=== PATIENT | male | born 1940 | race Caucasian/White ===

== ENCOUNTER 2016-11-23 01:38 | Emergency (ER) | payer OTHER, MEDICARE ==
--- OUTSIDE RECORDS SUMMARY | 2016-11-23 02:55 | XMS REPORT | Continuity of Care Document ---
:1940 Author Organization [email or web address] Address Unavailable [place] [id number] Care Team Providers Name Role Phone Richie Lopez Primary Care Provider [phone] Source Comments This disclosure is being made pursuant to the [employer] program and maynot contain all information available regarding this patient.[email or web address] Active Allergies and Adverse Reactions No Known Allergies Current Medications Be aware that medications may not be up to date as of this document. Alwaysverify current medications with the patient. Prescription Sig. Disp. Refills Start Date End Date Status Multiple Take 1 tablet Active Vitamins-Minerals by mouth 2 (MULTIVITAMIN ADULT (two) times PO) daily. omeprazole Take 20 mg by Active (PRILOSEC) 20 MG mouth every capsule morning before breakfast. vitamin D Take 1,000 Active (CHOLECALCIFEROL) Units by 1000 units tablet mouth daily. simvastatin (ZOCOR) Take 20 mg by Active 20 MG tablet mouth nightly. On hold for now, not to be taking right now * Leuprolide Acetate Inject as Active (LUPRON IJ) directed. lupron injections:la st taken 08/06 aspirin (ASPIRIN) Take 1 tablet 0 11/22/2016 Active 325 MG EC tablet by mouth nightly. tapentadol HCl Take 1 tablet 15 tablet 0 11/19/2016 Active (NUCYNTA) 50 MG (50 mg total) tablet by mouth every 6 (six) hours as needed for Pain. levofloxacin Take 1 tablet 3 tablet 0 11/19/2016 Active (LEVAQUIN) 500 MG by mouth tablet daily. Until gone cephALEXin (KEFLEX) Take 1 40 capsule 0 11/19/2016 11/29/2016 Active 500 MG capsule capsule by mouth 4 (four) times daily. tamsulosin HCl Take 0.4 mg 11/19/2016 Discontinued (FLOMAX) 0.4 MG by mouth as capsule directed. Three times a week: Tuesday, Tue, and Fridays aspirin (ASPIRIN) Take 325 mg 11/19/2016 Discontinued 325 MG EC tablet by mouth nightly. Active Problems Problem Noted Date Malignant neoplasm of prostate (HCC) 11/18/2016 Most Recent Encounters Date Type Specialty Providers Description 11/18/2016 - Hospital Encounter Med/Surg [facility], 11/19/2016 Kyaw Bahena MD 11/18/2016 Surgery Rippentredouard, ROBOTIC ASSISTED Kyaw Bahena MD LAPAROSCOPIC PROSTATECTOMY 11/17/2016 Anesthesia Event Addis Crews Social History Tobacco Use Types Packs/Day Years Used Date Never Smoker Alcohol Use Drinks/Week oz/Week Comments Yes 7 Glasses of wine 4.2 Last Filed Vital Signs Vital Sign Reading Time Taken Blood Pressure 104/64 11/19/2016 7:50 AM CDT Pulse 85 11/19/2016 7:50 AM CDT Temperature 36.2 C (97.2 F) 11/19/2016 7:50 AM CDT Respiratory Rate 16 11/19/2016 7:50 AM CDT Height 1.727 m (5' 7.99") 11/18/2016 10:45 AM CDT Weight 80.2 kg (176 lb 12.9 oz) 11/18/2016 10:45 AM CDT Body Mass Index 26.89 11/18/2016 10:45 AM CDT Oxygen Saturation 95% 11/19/2016 7:50 AM CDT Plan of Care Health Maintenance Due Date Last Done Comments Tetanus/Pertussis (1 - Tdap) 11/30/1958 Well Adult Visit 11/30/1989 Zoster Vaccine 60+ 1999 Pneumococcal Low/Medium Risk 65+ (1 of 2 - PCV13) 11/30/2004 Influenza Immunization (#1) 2017 Procedures from Last 3 Months Procedure Name Priority Date/Time Associated Diagnosis Comments ROBOTIC ASSISTED 11/18/2016 7:30 AM Malignant neoplasm of LAPAROSCOPIC DISSECT CDT prostate (HCC) NODE LYMPH Case Notes H&P Richie Wood [id number] Special Needs Resident to assist ROBOTIC ASSISTED LAPAROSCOPIC 11/18/2016 7:30 AM CDT Malignant neoplasm of PROSTATECTOMY prostate (HCC) Case Notes H&P Richie Wood [id number] Special Needs Resident to assist Results from Last 3 Months Type and screen (11/18/2016 6:26 AM) Component Value Range ABO/Rh O POSITIVE Antibody Screen NEGATIVEComment:Test Performed at [facility], [address] [place], [place]. Surgical pathology exam (11/18/2016) Narrative CASE: [id number] PATIENT: HEATHER GARCIA CLINICAL HISTORY/DIAGNOSIS: Malignant neoplasm of prostate. SPECIMEN SUBMITTED: A. Prostate. B. Left obturator lymph node. C. Right obturator lymph node, clip in place. D. Left pelvis sentinel vessel. Performed at [facility], [facility] [place] [address] [facility] SURGICAL PATHOLOGY REPORTSpecimen No.: [id number] DIAGNOSIS: A. Prostate, radical prostatectomy: - prostatic adenocarcinoma. - Renick score 4+5=9. - extraprostatic extension. - surgical margins negative. B. Left obturator lymph node, excision: - four lymph nodes negative for metastatic carcinoma. C. Right obturator lymph node, excision: - four lymph nodes negative for metastatic carcinoma. D. Designated "left pelvis sentinel vessel", biopsy: - seminal vesicleand fibrovascular tissue, negative for prostatic adenocarcinoma. AJCC Staging Information: pT3a, pN0, pMX GROSS DESCRIPTION: A. Received fresh labeled "Heather Garcia" and "prostate" is a 31-gram prostate with attached bilateral seminal vesicles and vas deferens.The prostate is 3.6 cm in length x 4.8x 3.7 cm.The right seminal vesicle and vas deferens are 2.4 cm in length and 2 cm in diameter.The left seminal vesicle and vas deferens are 1 cm in length and 1.4 cm in diameter.The outer surfaces of the prostate are red-porter and smooth to focally shaggy with red-brown probable cautery artifact.The right half of the prostate is inked black.The left half is inked red.Sectioning reveals pink-porter diffusely nodular cut surfaces.No distinct masses or lesions are grossly identified. Resident Care Director sections are submitted as follows: 1 and 2=right apex, entirely submitted; 3-6=territory sales representative sections of right prostate submitted apex to base; 7-9=right base, entirely submitted; 10=territory sales representative section of right seminal vesicle and vas deferens; 11 and 12=left apex entirely submitted; 13-16=territory sales representative sections of left prostate submitted apex to base; 17-19=left base, entirely submitted; 20=territory sales representative sections left seminal vesicle and vas deferens. B. Received fresh labeled "Heather Garcia" and "left obturator lymph node" is a 3.5 x 2.5 x 0.5 cm portion of yellow-porter, lobulated fibrofatty tissue. Within this tissue are four probable lymph nodes ranging from 0.4 to 2.9 cm in greatest dimension. The largest lymph node is serially sectioned to reveal pink-porter, grossly unremarkable cut surfaces. The lymph nodes are entirely submitted as follows: 1 and 2=one lymph node sectioned; 3=three whole probable lymph nodes. C. Received fresh labeled "Heather Garcia" and "right obturator lymph node with clip in place" is a 3.5 x 1.5 x 0.5 cm portion of yellow-porter, lobulated fibrofatty tissue. There is a plastic clip within the center of the specimen. Sectioning reveals four probable lymph nodes ranging from 0.3 to 2.2 cm in greatest dimension. The two largest lymph nodes are serially sectioned to reveal pink-porter, grossly unremarkable cut surfaces. The lymph nodes are entirely submitted as follows: 1 and 2=one lymph node sectioned; 3 and 4=one lymph node sectioned; 5=two whole probable lymph nodes. D. Received fresh labeled "Heather Garcia" and "left pelvis sentinel vessel" is a 4 x 0.5 x 0.2 cm portion of pink-porter tissue. The tissue is serially sectioned to reveal a lumen ranging from pinpoint to 0.3 cm in diameter. The specimen is entirely submitted in two. 11/18/16: NAVEEN/JOSEPH/hueyf MICROSCOPIC DESCRIPTION: A-D. Microscopic examinations performed and support the diagnoses. 11/19/16: KELLE/ravinder [facility] Surgical Pathology Cancer Case Summary (Checklist) PROSTATE GLAND: Radical Prostatectomy Staging information taken from this case Procedure: Radical prostatectomy Prostate Size: Weight: 31 grams. Size: 3.6 x 4.8 x 3.7 cm Lymph Node Sampling: Pelvic lymph node dissection Histologic Type: Adenocarcinoma (acinar, not otherwise specified) Histologic Grade:Renick Pattern Primary Pattern: Grade 4 Secondary Pattern: Grade 5 Tertiary Pattern: Not applicable Total Jessica Score: 9 Tumor Quantitation: Proportion (percentage) of prostate involved by tumor: 10-20% Tumor size (dominant nodule, if present): Greatest dimension: 20 mm Extraprostatic Extension: Present, Nonfocal (established, extensive) Seminal Vesicle Invasion: Not identified Margins: Margins uninvolved by invasive carcinoma Treatment Effect on Carcinoma: Not identified Lymph-Vascular Invasion: Not identified Perineural Invasion: Present Pathologic Staging (pTNM) TNM Descriptors Primary Tumor (pT): pT3a Regional Lymph Nodes (pN): pN0 Number of Lymph Nodes Examined: 8 Number of Lymph Nodes Involved: 0 Distant Metastasis (pM): Not applicable Final Diagnosis performed by Glenda Lauren M.D. Electronically signed 11/19/2016 2:08:57PM Procedure Note [place], Lab In [facility] - TueNov 19, 2016 2:19 PM CDT CASE: [id number] PATIENT: HEATHER GARCIA CLINICAL HISTORY/DIAGNOSIS: Malignant neoplasm of prostate. SPECIMEN SUBMITTED: A. Prostate. B. Left obturator lymph node. C. Right obturator lymph node, clip in place. D. Left pelvis sentinel vessel. Performed at [facility], [facility] [address] SURGICAL PATHOLOGY REPORT Specimen No.: [id number] DIAGNOSIS: A. Prostate, radical prostatectomy: - prostatic adenocarcinoma. - Renick score 4+5=9. - extraprostatic extension. - surgical margins negative. B. Left obturator lymph node, excision: - four lymph nodes negative for metastatic carcinoma. C. Right obturator lymph node, excision: - four lymph nodes negative for metastatic carcinoma. D. Designated "left pelvis sentinel vessel", biopsy: - seminal vesicle and fibrovascular tissue, negative for prostatic adenocarcinoma. AJCC Staging Information: pT3a, pN0, pMX GROSS DESCRIPTION: A. Received fresh labeled "Heather Garcia" and "prostate" is a 31-gram prostate with attached bilateral seminal vesicles and vas deferens. The prostate is 3.6 cm in length x 4.8 x 3.7 cm. The right seminal vesicle and vas deferens are 2.4 cm in length and 2 cm in diameter. The left seminal vesicle and vas deferens are 1 cm in length and 1.4 cm in diameter. The outer surfaces of the prostate are red-porter and smooth to focally shaggy with red-brown probable cautery artifact. The right half of the prostate is inked black. The left half is inked red. Sectioning reveals pink-porter diffusely nodular cut surfaces. No distinct masses or lesions are grossly identified. Resident Care Director sections are submitted as follows: 1 and 2=right apex, entirely submitted; 3-6=territory sales representative sections of right prostate submitted apex to base; 7-9=right base, entirely submitted; 10=territory sales representative section of right seminal vesicle and vas deferens; 11 and 12=left apex entirely submitted; 13-16=territory sales representative sections of left prostate submitted apex to base; 17-19=left base, entirely submitted; 20=territory sales representative sections left seminal vesicle and vas deferens. B. Received fresh labeled "AndrewsHeather" and "left obturator lymph node" is a 3.5 x 2.5 x 0.5 cm portion of yellow-porter, lobulated fibrofatty tissue. Within this tissue are four probable lymph nodes ranging from 0.4 to 2.9 cm in greatest dimension. The largest lymph node is serially sectioned to reveal pink-porter, grossly unremarkable cut surfaces. The lymph nodes are entirely submitted as follows: 1 and 2=one lymph node sectioned; 3=three whole probable lymph nodes. C. Received fresh labeled "Heather Garcia" and "right obturator lymph node with clip in place" is a 3.5 x 1.5 x 0.5 cm portion of yellow-porter, lobulated fibrofatty tissue. There is a plastic clip within the center of the specimen. Sectioning reveals four probable lymph nodes ranging from 0.3 to 2.2 cm in greatest dimension. The two largest lymph nodes are serially sectioned to reveal pink-porter, grossly unremarkable cut surfaces. The lymph nodes are entirely submitted as follows: 1 and 2=one lymph node sectioned; 3 and 4=one lymph node sectioned; 5=two whole probable lymph nodes. D. Received fresh labeled "AndrewsHeather" and "left pelvis sentinel vessel" is a 4 x 0.5 x 0.2 cm portion of pink-porter tissue. The tissue is serially sectioned to reveal a lumen ranging from pinpoint to 0.3 cm in diameter. The specimen is entirely submitted in two. 11/18/16: NAVEEN/JOSEPH/holli MICROSCOPIC DESCRIPTION: A-D. Microscopic examinations performed and support the diagnoses. 11/19/16: KELLE/ravinder [facility] Surgical Pathology Cancer Case Summary (Checklist) PROSTATE GLAND: Radical Prostatectomy Staging information taken from this case Procedure: Radical prostatectomy Prostate Size: Weight: 31 grams. Size: 3.6 x 4.8 x 3.7 cm Lymph Node Sampling: Pelvic lymph node dissection Histologic Type: Adenocarcinoma (acinar, not otherwise specified) Histologic Grade: Renick Pattern Primary Pattern: Grade 4 Secondary Pattern: Grade 5 Tertiary Pattern: Not applicable Total Renick Score: 9 Tumor Quantitation: Proportion (percentage) of prostate involved by tumor: 10-20% Tumor size (dominant nodule, if present): Greatest dimension: 20 mm Extraprostatic Extension: Present, Nonfocal (established, extensive) Seminal Vesicle Invasion: Not identified Margins: Margins uninvolved by invasive carcinoma Treatment Effect on Carcinoma: Not identified Lymph-Vascular Invasion: Not identified Perineural Invasion: Present Pathologic Staging (pTNM) TNM Descriptors Primary Tumor (pT): pT3a Regional Lymph Nodes (pN): pN0 Number of Lymph Nodes Examined: 8 Number of Lymph Nodes Involved: 0 Distant Metastasis (pM): Not applicable Final Diagnosis performed by Glenda Lauren M.D. Electronically signed 11/19/2016 2:08:57PM EKG SCAN (11/16/2016 1:22 AM)Antibody screen (11/10/2016 8:51 AM) Component Value Range Antibody Screen NEGATIVE ABO/Rh O POSITIVEComment:Test performed at [facility], [address] [facility], [place], [place] Insurance Payer Benefit Plan / Subscriber ID Type Phone Address Group [employer] MEDICARE [employer] MEDICARE [id number] [address] [address] [place] [address] MEDICARE MEDICARE A AND B [id number] [phone] [address] [place] [address]
--- NOTE | 2016-11-23 02:58 | ERNOTE ---
Abdominal HPI - General Chief Complaint: Abdominal Pain Time Seen by Provider: 11/23/16 02:37 Source: patient Exam Limitations: no limitations - Immun/Allergies/Home Medications Immunizatons: IMMUNIZATION HX Immunizations Up to Date Yes History of Influenza Vaccine Yes Hx Pneumococcal Vaccination Yes Allergies/Adverse Reactions: Allergies No Known Allergies Allergy (Verified 11/23/16 01:47) Home Medications: HOME MEDICATIONS Aspirin [Aspirin Enteric Coated] 325 mg PO HS 11/23/15 [Last Taken Unknown] Omeprazole [Prilosec] 20 mg PO DAILY 11/23/15 [Last Taken Unknown] - History of Present Illness Narrative: Pt had prostatectomy 4 days ago. Pain was improving but this evening it increased to the point that he couldn't get into his own car and his called EMS for transport here. Timing: getting worse - prior to ED, Quality: moderate Activities at Onset: activity Prior Treatment: Present: recently hospitalized Review of Systems - Review of Systems Constitutional: Absent: fever, chills EYE: Present: no symptoms reported ENT: Present: no symptoms reported Respiratory: Absent: shortness of breath Cardiology: Present: no symptoms reported Gastrointestinal/Abdominal: Present: See HPI, constipation. Absent: nausea, vomiting Genitourinary: Absent: hematuria - urine in bag has been clear/ yellow Musculoskeletal: Present: no symptoms reported Skin: Present: change in color - bruising on abdomen, flanks and pelvis Neurological: Present: no symptoms reported Endocrine: Absent: excessive sweating, flushing Hematologic/Lymphatic: Present: easy bruising Psych: Present: no symptoms reported - Patient's Past Medical History Patient History - Medical: GERD Patient History - Cardiac/Respiratory: Coronary Heart Disease, Hyperlipidemia Patient History - Cancer: Prostate, Skin Patient History - Surgical Procedures: Colonoscopy, Coronary Bypass Surgery Patient History - Other: None - Family History Father Family History - Medical: Family History - Cardiac/Respiratory: Myocardial Infarction Mother Family History - Cardiac/Respiratory: CHF - Social History Living Situations: home Abuse History: No History of abuse Psych History: No pertinent hx Smoking Status: Former smoker Alcohol Use: none Drug Use: none - Immunizations Immunizations Up to Date: Yes Hx Pneumococcal Vaccination: Yes History of Influenza Vaccine: Yes Physical Exam - Physical Exam General Appearance: Present: wd/wn, alert, mild distress Eye Exam: Normal inspection: bilateral, PERRL: bilateral Ears, Nose, Throat: Present: normal ENT inspection Neck: Present: normal inspection, nontender Respiratory: Present: no respiratory distress, normal breath sounds, lungs clear Cardiovascular/Chest: Present: regular rate, rhythm, no murmur Gastrointestinal/Abdominal: Present: normal bowel sounds, tenderness - diffuse, mild. Suprapubic mild-mod, distended - mildly. Absent: guarding, rebound Male Genitals Exam: Present: other - Penis and scrotum anatomically normal, irwin catheter in place and in good condition. Bruising on pelvis, penis, and scrotum Extremity Exam: Present: normal inspection, normal range of motion, no edema Neurological Exam: Present: alert, oriented, normal mood/affect, no motor/ sensory deficits Skin Exam: Present: other - Bruising around each of six port sites on abdomen, all well approximated without erythema or drainage. Bruising along bilateral flanks and into the pelvis, appropriate for his post surgical condition ED Progress - Results and Orders Patient's Lab Results:: I have reviewed the patient's lab results. Results and Orders: Laboratory Tests 11/23/16 11/23/16 11/23/16 02:50 02:55 02:55 WBC 11.8 H Hgb 9.4 L Hct 26.9 L Plt Count 222 Neutrophils % 78.1 H Sodium 133 Potassium 3.8 Chloride 97 Carbon Dioxide 27.9 Anion Gap 11.9 BUN 15 Creatinine 0.91 Est GFR (Non-Af Amer) 86 BUN/Creatinine Ratio 16.5 Random Glucose 122 H Calcium 8.7 Calcium Adj for Albumin 9.0 Total Bilirubin 1.3 H AST 23 ALT 23 Alkaline Phosphatase 72 Total Protein 6.8 Albumin 3.2 L Urine Color Yellow Urine Appearance Clear Urine pH 6.5 Ur Specific [place] 1.015 Urine Protein 15 H Urine Glucose (UA) Negative Urine Ketones Negative Urine Blood 250 H Urine Nitrate Negative Urine Bilirubin Negative Prot Sulfosalicylic Acd 1+ Urine Urobilinogen Normal Ur Leukocyte Esterase 25 H Urine RBC 10-25 H Urine WBC 0-5 Ur Epithelial Cells None seen Urine Bacteria Trace Hyaline Casts 0-5 H Urine Culture Comments Culture to follow - Vital Signs Patient's Vital Signs:: I have reviewed the patient's vital signs. Vital Signs: Vital Signs 11/23/16 11/23/16 11/23/16 01:39 02:17 02:45 Temperature 36.9 C Pulse Rate 87 83 87 Respiratory 18 18 18 Rate Blood Pressure 122/50 140/57 156/64 O2 Sat by Pulse 95 96 95 Oximetry - CT/Ultrasound CT/Ultrasound Narrative: Atelactasis in the lung bases Calcified pleural plaque along the right hemidiaphragm 1.4 cm cyst in the right kidney lower pole. No evidence for SBO Significant stool burden in the large bowel Post surgical changes: trace pneumoperitoneum, subcutaneous emphysema, and hematoma in the anterior wall. Possible small urinary leak posterior bladder. Abnormal fluid in the dependent pelvis and abdomen. May represent postsurgical change - Progress/Reassessment Chief Complaint: Abdominal Pain Progress Note-Subjective: 11/23/16 06:[address] results with the patient and the non-specific abnormal findings. I called the answering service for the Surgeon (Dr. Kyaw Prado [place], [place]) who performed his prostatectomy. I spoke with Dr. El from that group. He felt that the CT findings were all normal for his surgery, and he just had a post-op illeus. He further stated that as long as the patient was able to take PO intake that he would recommend clear liquids until feeling better. I discussed the recommendations with the patient and he and his expressed understanding. Pt admits to passing gas while in the ED. Departure - Departure Clinical Impression: Ileus, postoperative Disposition: Home Follow Up Needed Condition: Good Instructions: Ileus Additional Instructions: Clear liquids until your bowel begin to move. You may take a stool softener but no stimulant laxatives. See your urologist as scheduled this week. Return to ER as needed Referrals: Richie Lopez MD [Primary Care Provider] -
[2016-11-23 03:00] LABS: Hematocrit 26.9 % (42.0-52.0); Hemoglobin 9.4 gm/dL (13.5-18.0); Mean Cell Volume 87.1 fl (78-100); Mean Corpuscular Hemoglobin 30.4 pg (27-31); Mean Corpuscular Hgb Conc 34.9 g/dl (32-36); Mean Platelet Volume 8.7 fl (6.0-9.5); Neutrophil # 9.2 K/mm3 (1.3-6.0); Neutrophil % 78.1 % (42-75.0); Platelet Count 222 K/mm3 (150-450); Red Blood Count 3.09 M/mm3 (4.7-6.0); White Blood Count 11.8 K/mm3 (4.0-10.5)
[2016-11-23 03:07] LABS: Urine Bilirubin Negative (NEGATIVE); Urine Blood 250 /ul (NEGATIVE); Urine Ketone Negative (NEGATIVE); Urine Nitrite Negative (NEGATIVE); Urine Protein 15 mg/dL (NEGATIVE); Urine Specific Gravity 1.015 SP.GR. (1.005-1.030); Urine Urobilinogen Normal (NORMAL); Urine pH 6.5 pH (5.0-7.0)
[2016-11-23 03:14] LABS: Albumin * 3.2 gm/dl (3.4-5.0); Anion Gap 11.9 mmol/L (6.8-13.8); BUN/Creatinine Ratio 16.5 (9.0-21.6); Bilirubin, Total 1.3 mg/dL (0.0-1.1); Calcium * 8.7 mg/dL (7.9-10.9); Carbon Dioxide 27.9 mmol/L (24-32.6); Potassium 3.8 mmol/L (3.4-4.6); Total Protein 6.8 gm/dL (6.2-8.2)
[2016-11-23 03:19] LABS: Urine Appearance Clear; Urine Bacteria TRACE; Urine Color Yellow; Urine Hyaline Cast 0-5 /LPF; Urine WBC 0-5 /hpf (0-5)
[2016-11-23] MEDS ORDERED: DIATRIZOATE MEGLU/DIATRIZO SOD 30 ML BTL PO ONE (03:36)
[2016-11-23] MEDS ORDERED: DIATRIZOATE MEGLU/DIATRIZO SOD 30 ML BTL ONE (03:38)
[2016-11-23 06:51] VITALS: BP 161/65
== END 2016-11-23 07:05 | disposition home or self-care (01) ==
LOC: ER 01:38
DX: K91.3 Postprocedural intestinal obstruction (principal); N28.1 Cyst of kidney, acquired

== ENCOUNTER 2020-02-04 06:27 | Observation (INO) ==
[2020-02-04] MEDS ORDERED: NORMAL SALINE 1,000 ML IV ONE (06:37)
[2020-02-04 06:46] LABS: Hematocrit 40.7 % (42.0-52.0); Hemoglobin 12.7 gm/dL (13.5-18.0); Mean Cell Volume 87.3 fl (78-100); Mean Corpuscular Hemoglobin 27.3 pg (27-31); Mean Corpuscular Hgb Conc 31.2 g/dl (32-36); Mean Platelet Volume 8.9 fl (8-11.3); Neutrophil # 12.9 K/mm3 (1.3-6.0); Neutrophil % 85.8 % (42-75.0); Platelet Count 235 K/mm3 (150-450); Red Blood Count 4.66 M/mm3 (4.7-6.0); Red Cell Distribution Width 15.4 % (11.5-14.0)
--- NOTE | 2020-02-04 06:49 | ERNOTE ---
Medical Problem HPI - Narrative Date of Service: 02/04/20 - General Chief Complaint: General Assessment Time Seen by Provider: 02/04/20 06:33 Source: patient, EMS Exam Limitations: no limitations, clinical condition - Immun/Allergies/Home Medications Immunizations: IMMUNIZATION HX Immunizations Up to Date Yes History of Influenza Vaccine No Hx Pneumococcal Vaccination Yes Allergies/Adverse Reactions: Allergies Sulfa (Sulfonamide Antibiotics) Adverse Reaction (Mild, Verified 01/07/20 13:06) Nausea Home Medications: HOME MEDICATIONS Omeprazole [Prilosec] 20 mg PO DAILY 11/23/15 [Last Taken Unknown] aspirin 81 mg tablet,delayed release 81 mg PO DAILY 12/01/17 [Last Taken Unknown] cholecalciferol (vitamin D3) 25 mcg (1,000 unit) capsule 1,000 unit PO DAILY 12/01/17 [Last Taken Unknown] multivitamin 1 tab PO DAILY 12/01/17 [Last Taken Unknown] omega-3 fatty acids 1,000 mg capsule 1,000 mg PO DAILY 10/18/18 [Last Taken Unknown] metoclopramide HCl 10 mg tablet 10 mg PO QID #360 tab 12/07/19 [Last Taken Unknown] metoprolol tartrate 75 mg tablet 112.5 mg PO BID #270 tab 12/07/19 [Last Taken Unknown] oxybutynin chloride 5 mg tablet,extended release 24 hr 5 mg PO HS #90 tab 12/07/19 [Last Taken Unknown] Levothyroxine Sodium [Synthroid] 88 mcg PO DAILY 02/04/20 [Last Taken Unknown] Meloxicam [Mobic] 15 mg PO 02/04/20 [Last Taken Unknown] Rosuvastatin Calcium 10 mg PO DAILY 02/04/20 [Last Taken Unknown] - History of Present History Narrative: 79-year-old male got up from bed try to go to the bathroom assisted had some difficulty getting there and said he collapsed but did not lose consciousness completely while he was on the floor he had some coughing choking. 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 was done back in August and a stent upon arrival to the ED placed in the room patient's vital signs were taken patient was alert awake oriented speech was clearing up quite rapidly exam showed movement in all extremities good strength and strength patient wears a gait belt according to the the patient is DNR Date (Duration): 02/04/20 Time (Timing): 06:45 Timing: intermittent Severity: moderate Modifying Factors - (Improves): Present: other - Heat Modifying Factors - (Worsens): Present: other - Heat Review of Systems - Review of Systems Constitutional: Present: no symptoms reported EYE: Present: no symptoms reported ENT: Present: no symptoms reported Respiratory: Present: cough Cardiology: Present: no symptoms reported, palpitations Gastrointestinal/Abdominal: Present: no symptoms reported Genitourinary: Present: no symptoms reported Musculoskeletal: Present: muscle stiffness Skin: Present: no symptoms reported Neurological: Present: weakness, pre-existing deficit Endocrine: Present: no symptoms reported Hematologic/Lymphatic: Present: no symptoms reported Psych: Present: no symptoms reported All Other Systems: All systems neg except as marked Medical History (Last Reviewed 02/04/20 @ 06:46 by Richie Renee MD) 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 Multiple system atrophy Plantar fasciitis Onset Date: ~08/2011 Right. Thrombus of aorta Bradycardia Elevated troponin Onset Date: 11/23/15 Hypotension Ileus, postoperative Onset Date: 11/23/16 Lumbar compression fracture Onset Date: 09/06/18 Preop cardiovascular exam Prostate cancer Onset Date: Unknown Syncope and collapse CVA (cerebral vascular accident) Onset Date: ~2010 Surgical History: Surgical History (Last Reviewed 02/04/20 @ 06:46 by Richie Renee MD) History of biliary stent insertion (Resolved) Onset Date: 09/03/19 History of pancreatic surgery Onset Date: 10/05/19 Dr. Ryan Jones, [facility]. Pancreaticoduodenectomy with diagnostic laparoscopy. *Medical complication: post-operative arrhythmia (atrial fibrillation with RVR). Status post debridement of bone spur History of bilateral cataract extraction Onset Date: Unknown History of colonoscopy Onset Date: Unknown History of coronary artery bypass graft Onset Date: ~2001 History of prostatectomy Onset Date: 11/18/16 Family History: Family History (Last Reviewed 02/04/20 @ 06:35 by Sheba Tim RN) Brother Heart disease COPD (chronic obstructive pulmonary disease) Father Heart disease CVA (cerebral vascular accident) Myocardial infarction Mother CHF (congestive heart failure) Parkinson disease TIA (transient ischemic attack) Social History: (Last Reviewed 02/04/20 @ 06:35 by Sheba Tim RN) Social History: Marital status: current occupational status: retired Service: Yes branch: [employer] Tobacco: Smoking Status: Former smoker Alcohol: alcohol intake: current Substance Use: substance use type: does not use Dietary Habits: caffeine: Yes Physical Exam - Physical Exam General Appearance: Present: wd/wn, alert, mild distress, thin, attentive for age Head Exam: Present: normal inspection, no evidence of injury Eye Exam: Normal inspection: bilateral, PERRL: bilateral, EOMI: bilateral Ears, Nose, Throat: Present: normal ENT inspection Neck: Present: normal inspection Respiratory: Present: no respiratory distress, normal breath sounds Cardiovascular/Chest: Present: regular rate, rhythm, normal peripheral pulses Peripheral Pulses: N=norm/S=strong/W=weak/B=bound/A=absent: Carotid (R): Normal, Carotid (L): Normal Gastrointestinal/Abdominal: Present: normal bowel sounds, nontender Back Exam: Present: normal inspection, decreased range of motion Extremity Exam: Present: normal inspection Neurological Exam: Present: alert, oriented, no motor/sensory deficits, facial droop, other - Left facial droop but resolved after few minutes in the emergency Skin Exam: Present: normal color, warm/dry Lymphatic Exam: Present: no adenopathy Progress - Results and Orders Patient's Lab Results:: I have reviewed the patient's lab results. Results and Orders: Laboratory Tests 02/04/20 02/04/20 06:30 06:40 WBC 15.0 H RBC 4.66 L Hgb 12.7 L Hct 40.7 L MCV 87.3 MCH 27.3 MCHC 31.2 L RDW 15.4 H Plt Count 235 Neutrophils % 85.8 H Lymphocytes % 8.2 L Sodium 132 Plasma Sodium 133 Potassium 4.1 Chloride 96 L Carbon Dioxide 27.8 Anion Gap 12.3 BUN 18 Creatinine 0.92 Est GFR (Non-Af Amer) 84 BUN/Creatinine Ratio 19.6 Random Glucose 144 H Calcium 9.5 Calcium Adj for Albumin 9.5 Total Bilirubin 0.4 AST 23 ALT 38 Alkaline Phosphatase 87 Troponin I 0.058 Total Protein 7.9 Albumin 3.6 - Vital Signs Patient's Vital Signs:: I have reviewed the patient's vital signs. Vital Signs: Vital Signs 02/04/20 06:29 Temperature 37.0 C Pulse Rate 80 Respiratory Rate 20 Blood Pressure 150/68 H O2 Sat by Pulse Oximetry 92 L - EKG EKG #1 EKG: NSR EKG read: Interp. by me EKG Comments: Sinus rhythm heart rate 80 no acute changes when compared to prior of 10/18/2018 - X-Ray X-Ray #1 X-Ray: chest Interpretation: Interp. by me X-ray Comments: Chest x-ray shows a left lower lobe infiltrate and a possible right middle lobe infiltrate - CT/Ultrasound CT/Ultrasound Narrative: CAT scan of the brain no intracranial hemorrhage mass-effect midline shift generalized cerebral atrophy periventricular white matter disease no dominant region of acute cerebral edema chronic infarct right posterior basal ganglion region no acute sinusitis or mastoiditis status noted - Progress/Reassessment Chief Complaint: General Assessment Plan - Plan Plan: Patient will be admitted Patient to be admitted to the [facility] Dr. Hurtado excepting Departure Clinical Impression: Bilateral pneumonia - Departure Disposition: Short Term Hospital Inpatient Condition: Critical Referrals: Roland Hurtado DO [Primary Care Provider] -
[2020-02-04 07:06] LABS: Troponin I 0.058 ng/mL (0.00-0.10)
[2020-02-04 07:07] LABS: Albumin * 3.6 gm/dl (3.4-5.0); Anion Gap 12.3 mmol/L (6.8-13.8); BUN/Creatinine Ratio 19.6 (9.0-21.6); Bilirubin, Total 0.4 mg/dL (0.0-1.1); Ca. Corrected For Albumin 9.5 mg/dL (8.4-10.2); Calcium * 9.5 mg/dL (7.9-10.9); Carbon Dioxide 27.8 mmol/L (24-32.6); Potassium 4.1 mmol/L (3.4-4.6); Total Protein 7.9 gm/dL (6.2-8.2)
[2020-02-04] MEDS ORDERED: cefTRIAXone SODIUM 1,000 MG/100 ML BAG IV ONE (07:34)
[2020-02-04] MEDS ORDERED: AZITHROMYCIN 500 MG in DEXTROSE 5 % IN WATER 250 ML IV ONE ×2 (09:00)
--- NOTE | 2020-02-04 11:42 | HP ---
Chief Complaint - Chief Complaint Date of Service: 02/04/20 Time of Service: 11:42 Chief Complaint: Cough, shortness of breath History of Present Illness: Mr. Sparrow is an 79 yo male presenting to the [facility] ER for cough and shortness of breath. He reports symptoms started yesterday. Denies fever, chills, nausea, or vomiting. Chest Xray in the ER shows bilateral pneumonia, WBC elevated, and COVID19 negative. His vitals were overall normal without hypoxia. At the time of my examination he reports feeling better already. 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 Multiple system atrophy Plantar fasciitis Onset Date: ~08/2011 Right. Thrombus of aorta Bradycardia Elevated troponin Onset Date: 11/23/15 Hypotension Ileus, postoperative Onset Date: 11/23/16 Lumbar compression fracture Onset Date: 09/06/18 Preop cardiovascular exam Prostate cancer Onset Date: Unknown Syncope and collapse CVA (cerebral vascular accident) Onset Date: ~2010 Surgical History: Surgical History (Last Reviewed 02/04/20 @ 06:46 by Richie Renee MD) History of biliary stent insertion (Resolved) Onset Date: 09/03/19 History of pancreatic surgery Onset Date: 10/05/19 Dr. Ryan Jones, [facility]. Pancreaticoduodenectomy with diagnostic laparoscopy. *Medical complication: post-operative arrhythmia (atrial fibrillation with RVR). Status post debridement of bone spur History of bilateral cataract extraction Onset Date: Unknown History of colonoscopy Onset Date: Unknown History of coronary artery bypass graft Onset Date: ~2001 History of prostatectomy Onset Date: 11/18/16 Family History: Family History (Last Reviewed 02/04/20 @ 06:35 by Sheba Tim RN) Brother Heart disease COPD (chronic obstructive pulmonary disease) Father Heart disease CVA (cerebral vascular accident) Myocardial infarction Mother CHF (congestive heart failure) Parkinson disease TIA (transient ischemic attack) Social History: (Last Reviewed 02/04/20 @ 06:35 by Sheba Tim RN) Social History: Marital status: current occupational status: retired Service: Yes branch: [employer] Tobacco: Smoking Status: Former smoker Alcohol: alcohol intake: current Substance Use: substance use type: does not use Dietary Habits: caffeine: Yes Review Of Systems (GEN) - Review of Systems Generalized/Overall Review: Present: Weakness, Fatigue. Absent: Chills, Fever EENTM: Present: No Symptoms Reported Respiratory: Present: Cough, Shortness of Breath Cardiac: Absent: Chest Pain, Edema Abdominal: Absent: Nausea, Vomiting Genitourinary: Present: No Symptoms Reported Musculoskeletal: Present: No Symptoms Reported Neurological: Present: No Symptoms Reported Skin: Present: No Symptoms Reported Endocrine: Present: No Symptoms Reported Immunizations: IMMUNIZATION HX Immunizations Up to Date Yes History of Influenza Vaccine No Hx Pneumococcal Vaccination Yes Allergies/Adverse Reactions: Allergies Allergy/AdvReac Type Severity Reaction Status Date / Time Sulfa (Sulfonamide AdvReac Mild Nausea Verified 01/07/20 13:06 Antibiotics) Home Medications: HOME MEDICATIONS Omeprazole [Prilosec] 40 mg PO DAILY 11/23/15 [Last Taken Unknown] aspirin 81 mg tablet,delayed release 81 mg PO DAILY 12/01/17 [Last Taken Unknown] cholecalciferol (vitamin D3) 25 mcg (1,000 unit) capsule 1,000 unit PO DAILY 12/01/17 [Last Taken Unknown] multivitamin 1 tab PO DAILY 12/01/17 [Last Taken Unknown] omega-3 fatty acids 1,000 mg capsule 1,000 mg PO DAILY 10/18/18 [Last Taken Unknown] metoclopramide HCl 10 mg tablet 10 mg PO QID #360 tab 12/07/19 [Last Taken Unknown] metoprolol tartrate 75 mg tablet 112.5 mg PO BID #270 tab 12/07/19 [Last Taken Unknown] oxybutynin chloride 5 mg tablet,extended release 24 hr 5 mg PO HS #90 tab 12/07/19 [Last Taken Unknown] Levothyroxine Sodium [Synthroid] 88 mcg PO DAILY 02/04/20 [Last Taken Unknown] Meloxicam [Mobic] 15 mg PO 02/04/20 [Last Taken Unknown] Rosuvastatin Calcium 10 mg PO DAILY 02/04/20 [Last Taken Unknown] Exam - Exam Vital Signs: Vital Signs - Last Taken Temp 37.4 C 02/04/20 09:38 Pulse 68 02/04/20 09:38 Resp 22 H 02/04/20 09:38 BP 138/67 02/04/20 09:38 Pulse Ox 95 02/04/20 09:38 Constitutional: Present: Alert, Oriented x3, Cooperative, No distress Eye Exam: bilateral eye: normal inspection Respiratory: Present: lungs clear, normal breath sounds, no respiratory distress Cardiovascular/Chest: Present: regular rate, rhythm, no edema, no murmur Peripheral Pulses: radial (R): 2+, radial (L): 2+ Abdomen: Present: Normal bowel sounds, soft, nontender, nondistended Extremity: Present: normal inspection Skin Exam: Present: normal color, warm/dry, no cyanosis Neurologic: Present: no motor/sensory deficits, alert, normal mood/affect Appearance: Present: appropriate appearance, appropriate insight Eye contact: Present: cooperative, good eye contact, normal speech Diagnostic Studies: Abnormal Lab Results 02/04/20 02/04/20 Range/Units 06:30 06:40 WBC 15.0 H (4.0-10.5) K/mm3 RBC 4.66 L (4.7-6.0) M/mm3 Hgb 12.7 L (13.5-18.0) gm/dL Hct 40.7 L (42.0-52.0) % MCHC 31.2 L (32-36) g/dl RDW 15.4 H (11.5-14.0) % Immature Gran # (Auto) 0.04 H (0.000-0.0310) K/mm3 Neutrophils % 85.8 H (42-75.0) % Lymphocytes % 8.2 L (20-51) % Neutrophils # 12.9 H (1.3-6.0) K/mm3 Lymphocytes # 1.23 L (1.5-3.5) k/mm3 Chloride 96 L (97-106) mmol/L Random Glucose 144 H (70-110) mg/dL B-Natriuretic Peptide 780 H (5-650) pg/mL Laboratory Results WBC 15.0 K/mm3 (4.0-10.5) H 02/04/20 06:40 RBC 4.66 M/mm3 (4.7-6.0) L 02/04/20 06:40 Hgb 12.7 gm/dL (13.5-18.0) L 02/04/20 06:40 Hct 40.7 % (42.0-52.0) L 02/04/20 06:40 MCV 87.3 fl (78-100) 02/04/20 06:40 MCH 27.3 pg (27-31) 02/04/20 06:40 MCHC 31.2 g/dl (32-36) L 02/04/20 06:40 RDW 15.4 % (11.5-14.0) H 02/04/20 06:40 Plt Count 235 K/mm3 (150-450) 02/04/20 06:40 MPV 8.9 fl (8-11.3) 02/04/20 06:40 Immature Gran % (Auto) 0.30 % (0.001-0.429) 02/04/20 06:40 Immature Gran # (Auto) 0.04 K/mm3 (0.000-0.0310) H 02/04/20 06:40 Neutrophils % 85.8 % (42-75.0) H 02/04/20 06:40 Lymphocytes % 8.2 % (20-51) L 02/04/20 06:40 Monocytes % 4.0 % (0.0-9) 02/04/20 06:40 Eosinophils % 1.2 % (0.0-3.0) 02/04/20 06:40 Basophils % 0.5 % (0.0-1.0) 02/04/20 06:40 Nucleated RBC % 0.0 k/mm3 (0-1) 02/04/20 06:40 Neutrophils # 12.9 K/mm3 (1.3-6.0) H 02/04/20 06:40 Lymphocytes # 1.23 k/mm3 (1.5-3.5) L 02/04/20 06:40 Monocytes # 0.6 k/mm3 (0.0-1.0) 02/04/20 06:40 Eosinophils # 0.2 k/mm3 (0.0-0.7) 02/04/20 06:40 Absolute Basophils 0.1 k/mm3 (0.0-0.1) 02/04/20 06:40 Sodium 132 mmol/L (132-142) 02/04/20 06:30 Plasma Sodium 133 mmol/L (130-142) 02/04/20 06:30 Potassium 4.1 mmol/L (3.4-4.6) 02/04/20 06:30 Chloride 96 mmol/L (97-106) L 02/04/20 06:30 Carbon Dioxide 27.8 mmol/L (24-32.6) 02/04/20 06:30 Anion Gap 12.3 mmol/L (6.8-13.8) 02/04/20 06:30 BUN 18 mg/dL (6-23) 02/04/20 06:30 Creatinine 0.92 mg/dL (0.4-1.4) 02/04/20 06:30 Est GFR (Non-Af Amer) 84 mL/min (60-130) 02/04/20 06:30 BUN/Creatinine Ratio 19.6 (9.0-21.6) 02/04/20 06:30 Random Glucose 144 mg/dL (70-110) H 02/04/20 06:30 Lactic Acid, Venous 1.0 mmol/L (0.4-2.0) 02/04/20 07:16 Calcium 9.5 mg/dL (7.9-10.9) 02/04/20 06:30 Calcium Adj for Albumin 9.5 mg/dL (8.4-10.2) 02/04/20 06:30 Total Bilirubin 0.4 mg/dL (0.0-1.1) 02/04/20 06:30 AST 23 U/L (0-48) 02/04/20 06:30 ALT 38 U/L (19-67) 02/04/20 06:30 Alkaline Phosphatase 87 U/L (50-170) 02/04/20 06:30 Troponin I 0.058 ng/mL (0.00-0.10) 02/04/20 06:30 B-Natriuretic Peptide 780 pg/mL (5-650) H 02/04/20 06:30 Total Protein 7.9 gm/dL (6.2-8.2) 02/04/20 06:30 Albumin 3.6 gm/dl (3.4-5.0) 02/04/20 06:30 SARS-CoV-2 (PCR) Not detected (NotDetected) 02/04/20 07:56 Assessment/Plan - Narrative Narrative: Maxime is an 79 yo male admitted for bilateral pneumonia. He is medically stable but due to bilateral pneumonia and advanced age will admit to observation and start on azithromycin and rocephin. Will plan to change to cefdinir and azithromycin tomorrow. Will give cornet and IS and breathing treatments prn. Plan to discharge to home tomorrow unless he has problems with hypoxia or clinically worsens. - Assessment/Plan (1) Bilateral pneumonia Problem: Acute Qualifiers: Lung location: lower lobe of lung (2) Bile duct adenocarcinoma Problem: Chronic (3) Coronary artery disease Problem: Chronic
[2020-02-04] MEDS ORDERED: ALBUTEROL SULFATE/IPRATROPIUM 3 ML NEBU IH PRN (11:43)
[2020-02-04] MEDS: METOCLOPRAMIDE HCL 10 MG TABLET PO SCH ×3 (14:01→20:07)
[2020-02-04 16:48] LABS: Urine Bilirubin Negative (NEGATIVE); Urine Blood Negative /ul (NEGATIVE); Urine Ketone Negative (NEGATIVE); Urine Nitrite Negative (NEGATIVE); Urine Protein Negative (NEGATIVE); Urine Specific Gravity <=1.005 SP.GR. (1.005-1.030); Urine Urobilinogen Normal (NORMAL)
[2020-02-04 17:01] LABS: Urine Appearance Clear (CLEAR); Urine Bacteria TRACE; Urine Color Yellow; Urine RBC TRACE /hpf (0-5); Urine WBC TRACE /hpf (0-5)
[2020-02-04] MEDS: METOPROLOL TARTRATE PO SCH ×2 (20:06)
[2020-02-04] MEDS ORDERED: ROSUVASTATIN CALCIUM 10 MG TABLET PO SCH (21:00)
[2020-02-04] MEDS ORDERED: OXYBUTYNIN CHLORIDE 5 MG TABLET PO SCH (21:00)
[2020-02-04] MEDS ORDERED: METOPROLOL TARTRATE PO SCH (21:00)
[2020-02-05 06:45] LABS: Hemoglobin 11.5 gm/dL (13.5-18.0); Mean Cell Volume 82.5 fl (78-100); Mean Corpuscular Hemoglobin 27.1 pg (27-31); Mean Corpuscular Hgb Conc 32.9 g/dl (32-36); Mean Platelet Volume 8.3 fl (8-11.3); Neutrophil # 7.2 K/mm3 (1.3-6.0); Neutrophil % 68.6 % (42-75.0); Platelet Count 243 K/mm3 (150-450); Red Blood Count 4.24 M/mm3 (4.7-6.0); Red Cell Distribution Width 15.1 % (11.5-14.0); White Blood Count 10.5 K/mm3 (4.0-10.5)
[2020-02-05] MEDS ORDERED: LEVOTHYROXINE SODIUM 88 MCG TABLET PO SCH (07:00)
[2020-02-05] MEDS ORDERED: PANTOPRAZOLE SODIUM 40 MG TABLET.EC PO SCH (07:00)
[2020-02-05 07:03] LABS: Albumin * 3.2 gm/dl (3.4-5.0); Anion Gap 9.8 mmol/L (6.8-13.8); BUN/Creatinine Ratio 21.8 (9.0-21.6); Bilirubin, Total 0.5 mg/dL (0.0-1.1); Ca. Corrected For Albumin 9.7 mg/dL (8.4-10.2); Calcium * 9.4 mg/dL (7.9-10.9); Carbon Dioxide 27.8 mmol/L (24-32.6); Potassium 4.6 mmol/L (3.4-4.6); Total Protein 7.5 gm/dL (6.2-8.2)
[2020-02-05] MEDS: METOCLOPRAMIDE HCL 10 MG TABLET PO SCH ×2 (08:05→13:07)
[2020-02-05] MEDS ORDERED: CEFDINIR 300 MG CAPSULE PO SCH (09:00)
[2020-02-05] MEDS ORDERED: MELOXICAM 15 MG TABLET PO SCH (09:00)
[2020-02-05] MEDS ORDERED: AZITHROMYCIN 250 MG TABLET PO SCH (09:00)
[2020-02-05] MEDS ORDERED: MULTIVITAMINS 1 CAP CAPSULE PO SCH (09:00)
[2020-02-05] MEDS ORDERED: ASPIRIN 81 MG TABLET.DR PO SCH (09:00)
[2020-02-05] MEDS ORDERED: CHOLECALCIFEROL 1,000 UNIT CAPSULE PO SCH (09:00)
[2020-02-05] MEDS: METOPROLOL TARTRATE PO SCH ×2 (09:09)
--- NOTE | 2020-02-05 12:52 | DS ---
(1) Bilateral pneumonia Problem: Acute Qualifiers: Lung location: lower lobe of lung (2) Bile duct adenocarcinoma Problem: Chronic (3) Coronary artery disease Problem: Chronic Date of Discharge:: 02/05/20 Hospital Course: Maxime is an 79 yo male admitted with bilateral pneumonia. He was admitted to observation and started on rocephin, azithromycin, cornet, IS, and duonebs. He was admitted due to his advanced age to monitor and make sure he was without hypoxia and that he was not worsening. Today he feels better and was switched to oral azithromycin and cefdinir. He will be discharged to home and follow up in a week. Procedures Performed: none Results and Findings: Pending Mircobiology Results 02/04/20 07:52 Blood Blood Culture - Preliminary NO GROWTH 24 HOURS 02/04/20 06:30 Blood Blood Culture - Preliminary NO GROWTH 24 HOURS Lab Pending Results 02/04/20 06:30: Sodium 132, Plasma Sodium 133, Potassium 4.1, Chloride 96 L, Carbon Dioxide 27.8, Anion Gap 12.3, BUN 18, Creatinine 0.92, Est GFR (Non-Af Amer) 84, BUN/Creatinine Ratio 19.6, Random Glucose 144 H, Calcium 9.5, Calcium Adj for Albumin 9.5, Total Bilirubin 0.4, AST 23, ALT 38, Alkaline Phosphatase 87, Troponin I 0.058, B-Natriuretic Peptide 780 H, Total Protein 7.9, Albumin 3.6 02/04/20 06:40: WBC 15.0 H, RBC 4.66 L, Hgb 12.7 L, Hct 40.7 L, MCV 87.3, MCH 27.3, MCHC 31.2 L, RDW 15.4 H, Plt Count 235, MPV 8.9, Immature Gran % (Auto) 0.30, Immature Gran # (Auto) 0.04 H, Neutrophils % 85.8 H, Lymphocytes % 8.2 L, Monocytes % 4.0, Eosinophils % 1.2, Basophils % 0.5, Nucleated RBC % 0.0, Neutrophils # 12.9 H, Lymphocytes # 1.23 L, Monocytes # 0.6, Eosinophils # 0.2, Absolute Basophils 0.1 02/04/20 07:16: Lactic Acid, Venous 1.0 02/04/20 07:56: SARS-CoV-2 (PCR) Not detected 02/04/20 16:35: Urine Color Yellow, Urine Appearance Clear, Urine pH 6.0, Ur Specific [place] <=1.005, Urine Protein Negative, Urine Glucose (UA) Negative, Urine Ketones Negative, Urine Blood Negative, Urine Nitrate Negative, Urine Bilirubin Negative, Urine Urobilinogen Normal, Ur Leukocyte Esterase Negative, Urine RBC Trace, Urine WBC Trace, Ur Epithelial Cells Trace, Urine Bacteria Trace, Urine Culture Comments No culture indicated 02/05/20 06:30: WBC 10.5 D, RBC 4.24 L, Hgb 11.5 L, Hct 35.0 L, MCV 82.5, MCH 27.1, MCHC 32.9, RDW 15.1 H, Plt Count 243, MPV 8.3, Immature Gran % (Auto) 0.60 H, Immature Gran # (Auto) 0.06 H, Neutrophils % 68.6, Lymphocytes % 19.3 L, Monocytes % 8.5, Eosinophils % 2.6, Basophils % 0.4, Nucleated RBC % 0.0, Neutrophils # 7.2 H, Lymphocytes # 2.03, Monocytes # 0.9, Eosinophils # 0.3, Absolute Basophils 0.0 02/05/20 06:30: Sodium 132, Plasma Sodium 132, Potassium 4.6, Chloride 99, Carbon Dioxide 27.8, Anion Gap 9.8, BUN 19, Creatinine 0.87, Est GFR (Non-Af Amer) 90, BUN/Creatinine Ratio 21.8 H, Random Glucose 105, Calcium 9.4, Calcium Adj for Albumin 9.7, Total Bilirubin 0.5, AST 23, ALT 38, Alkaline Phosphatase 64, Total Protein 7.5, Albumin 3.2 L Discharge Location: Home Disposition: Home Health Service Condition: Good Discharge Activity: Activity as tolerated Discharge Diet: General/regular food Referrals: Roland Hurtado DO [Primary Care Provider] - One Week Problem Oriented Discharge Instructions to Patient/Family: Community-Acquired Pneumonia, Adult, [id number] Additional Patient Instructions (free text): Resume [facility] Home Health at discharge- fax orders, medications, and call report. Prescriptions (Any new or edited meds): Cefdinir [Omnicef] 300 mg PO BID #20 cap Transmission Status: Pending to [facility] #[id number] Azithromycin [Zithromax] 250 mg PO DAILY #4 tab Transmission Status: Pending to [facility] #[id number] Complete Home Medications List: Complete Home Medication List: Omeprazole [Prilosec] 40 mg PO DAILY 11/23/15 aspirin 81 mg tablet,delayed release 81 mg PO DAILY 12/01/17 cholecalciferol (vitamin D3) 25 mcg (1,000 unit) capsule 1,000 unit PO DAILY 12/01/17 multivitamin 1 tab PO DAILY 12/01/17 omega-3 fatty acids 1,000 mg capsule 1,000 mg PO DAILY 10/18/18 metoclopramide HCl 10 mg tablet 10 mg PO QID #360 tab 12/07/19 metoprolol tartrate 75 mg tablet 112.5 mg PO BID #270 tab 12/07/19 oxybutynin chloride 5 mg tablet,extended release 24 hr 5 mg PO HS #90 tab 12/07/19 Levothyroxine Sodium [Synthroid] 88 mcg PO DAILY 02/04/20 Meloxicam [Mobic] 15 mg PO 02/04/20 Rosuvastatin Calcium 10 mg PO DAILY 02/04/20 Azithromycin [Zithromax] 250 mg PO DAILY #4 tab 02/05/20 Cefdinir [Omnicef] 300 mg PO BID #20 cap 02/05/20 Forms: Patient Portal Registration
[2020-02-05 13:05] VITALS: BP 156/58
== END 2020-02-05 13:34 | disposition home health service (06) ==
LOC: ER 06:27 → INTOOBSV 08:45 → MS 08:45
PROVIDERS: ADMIT Family Medicine; ATTEND Family Medicine